=== PATIENT | male | born 1950 | race Asian ===

== ENCOUNTER 2018-04-26 11:20 | Inpatient (IN) | payer MEDICARE ==
[~2018-04-26] VITALS: Ht 167.6 cm; Wt 64.4 kg
--- NOTE | 2018-04-26 11:40 | NUR ---
FROM HOME, C/O ABD PAIN X 4 DAYS, +N/V AND LAST BM 4 DAYS AGO. NAD, VSS, WILL MONITOR
[2018-04-26] MEDS ORDERED: ONDANSETRON HCL/PF 4 MG/2 ML VIAL ONE (11:41)
[2018-04-26 11:47] LABS: BASOPHILS % (AUTO) 1.1 % (0.0-2.0); EOSINOPHILS % (AUTO) 5.9 % (0.0-6.0); HEMATOCRIT 49 % (39-51); HEMOGLOBIN 16.8 g/dL (13.5-17.5); LYMPHOCYTES # (AUTO) 1.1 /CMM (0.8-4.8); LYMPHOCYTES % (AUTO) 31.7 % (20.0-44.0); MEAN CORPUSCULAR HGB CONC 34 g/dl (31.0-36.0); MEAN CORPUSCULAR VOLUME 96 fL (80-96); MONOCYTES # (AUTO) 0.3 /CMM (0.1-1.30); MONOCYTES % (AUTO) 10.1 % (2.0-12.0); NEUTROPHILS # (AUTO) 1.7 /CMM (1.8-8.9); NEUTROPHILS % (AUTO) 51.2 % (43.0-81.0); PLATELET COUNT (AUTO) 173 /CMM (150-450); RED BLOOD CELL COUNT(AUTO) 5.16 MIL/uL (4.5-6.0); WHITE BLOOD COUNT (AUTO) 3.3 K/uL (4.3-11.0)
[2018-04-26 11:54] LABS: CALCIUM, SERUM 8.8 mg/dL (8.5-10.1); CARBON DIOXIDE 31 mmol/L (21-32); CHLORIDE 105 mmol/L (98-107); CREATININE 1.2 mg/dL (0.6-1.3); GLUCOSE 112 mg/dL (74-106); POTASSIUM 4.5 mmol/L (3.5-5.1); SODIUM SERUM 141 mmol/L (136-145); UREA NITROGEN, BLOOD 21 mg/dL (7-18)
[2018-04-26 12:00] LABS: ALANINE AMINOTRANSFERASE 23 U/L (12-78); ALBUMIN 4.1 g/dL (3.4-5.0); ALKALINE PHOSPHATASE 97 U/L (46-116); ASPARTATE AMINOTRANSFERASE 17 U/L (15-37); BILIRUBIN,DIRECT 0.3 mg/dL (0.0-0.2); BILIRUBIN,TOTAL 1.1 mg/dL (0.2-1.0); LIPASE 312 U/L (73-393)
[2018-04-26] MEDS ORDERED: IV NS 0.9% 1,000 ML BAG IV ONE (12:00)
[2018-04-26] MEDS ORDERED: ONDANSETRON HCL/PF 4 MG/2 ML VIAL IVP ONE (12:00)
[2018-04-26 12:37] LABS: APPEARANCE,URINE Clear (CLEAR); BILIRUBIN,URINE Negative (NEGATIVE); BLOOD, URINE Small Ery/uL (NEGATIVE); COLOR,URINE Yellow (YELLOW); KETONES,URINE Negative (NEGATIVE); LEUKOCYTE ESTERASE ,URINE Negative (NEGATIVE); NITRITE, URINE Negative (NEGATIVE); PROTEIN,URINE Negative (NEGATIVE); UGLUCOSE Negative (NEGATIVE); UROBILINOGEN,URINE 0.2 EU/dL (0.2)
[2018-04-26 12:44] LABS: BACTERIA,URINE None seen /HPF (None Seen); SQUAMOUS EPITHELIAL CELL,UR Few /HPF (None Seen)
[2018-04-26] MEDS ORDERED: IOHEXOL-300 100 ML VIAL IV ONE (13:04)
[2018-04-26] MEDS ORDERED: IV NS 0.9% 250 ML IV ONE (13:04)
[2018-04-26] MEDS ORDERED: CT SWABBABLE VALVE TRANS SET 1 EA INFUS.SET MC ONE (13:04)
--- NOTE | 2018-04-26 14:06 | NUR ---
CALLED [facility] REQUESTED MEDSUR BED FOR THIS PATIENT.
--- NOTE | 2018-04-26 14:29 | NUR ---
ADMIT TO MED SURG 320-1 MARCUS VALDERRAMA DX VOMITING ACCEPTING SHANI MANNING
[2018-04-26] MEDS ORDERED: ACETAMINOPHEN 325 MG TABLET PO PRN (15:30)
[2018-04-26] MEDS ORDERED: ONDANSETRON HCL/PF 4 MG/2 ML VIAL IVP PRN (15:30)
[2018-04-26] MEDS ORDERED: HYDROCODONE/APAP 5/325MG 1 EACH TABLET PO PRN (15:30)
[2018-04-26] MEDS ORDERED: ZOLPIDEM TARTRATE 5 MG TABLET PO PRN (15:30)
[2018-04-26] MEDS ORDERED: MAGNESIUM HYDROXIDE 30 ML UDC PO PRN (15:30)
[2018-04-26] MEDS ORDERED: LOPERAMIDE HCL (2 MG CAP) 2 MG CAPSULE PO PRN (15:30)
[2018-04-26] MEDS ORDERED: HYDROMORPHONE INJ 2 MG/ML DISP.SYRIN IV PRN (15:30)
[2018-04-26] MEDS ORDERED: MAG HYDROX/AL HYDROX/SIMETH 30 ML UDC PO PRN (15:30)
[2018-04-26] MEDS ORDERED: Z GUARD REMEDY 2 OZ OINT TP PRN (15:30)
--- NOTE | 2018-04-26 15:41 | NUR ---
CALLED [facility] AND SPOKE TO MARCUS, REPORT GIVEN FOR DEMETRICE.
--- NOTE | 2018-04-26 16:15 | NUR ---
MS BUILDING CLEANING SUPERVISOR NOTE RECEIVED PT VIA WHEELCHAIR ACCOMPANIED BY 1 ER STAFF. PT TRANSFERRED FROM WHEELCHAIR, USING CANE, PIVOTED TO BED WITH 1 STAFF ASSISTANCE. PT IS ALERT AND RESPONSIVE. UNABLE TO TELL FULL ORIENTATION PT IS GREEK SPEAKING. ABLE TO ANSWER SIMPLE YES/NO QUESTIONS. RESPIRATIONS ARE EVEN AND UNLABORED, NOT IN ANY ACUTE DISTRESS NOTED. NO FACIAL GRIMACING OR MOANING NOTED. ABDOMEN IS SOFT AND NONDISTENDED, BOWEL SOUNDS ARE HYPOACTIVE UPON AUSCULTATION. NO FACIAL GRIMACING NOTED UPON PALPATION OF BLADDER. PT IS INCONTINENT. REDNESS NOTED TO SACRUM AND RIGHT HEEL, OLD INCISION SCAR TO RIGHT HIP. PICTURES TAKEN AND PLACED IN CHART. BELONGINGS LIST DONE AND ACCOUNTED FOR. BLAISE, PROCESSING TECHNOLOGIST AWARE OF ADMISSION WITH ORDERS NOTED AND CARRIED OUT. INSTRUCTED PT USING HAND GESTURES ON HOW TO USE CALL LIGHT WHEN ASSISTANCE IS NEEDED, PT ABLE TO PERFORM RETURN DEMONSTRATION. CALL LIGHT IS LEFT WITHIN REACH. WILL MONITOR THROUGHOUT SHIFT FOR CONTINUITY OF CARE.
[2018-04-26 16:25] VITALS: BP 112/72
--- NOTE | 2018-04-26 16:25 | NUR ---
PATIENT TRANSFERRED TO ROOM 320, REPORT GIVEN TO MARCUS VALDERRAMA. NAD.
[2018-04-26 16:30] VITALS: BP 112/72
[2018-04-26] MEDS: IV NS 0.9% 1,000 ML IV PRN (17:24)
--- NOTE | 2018-04-26 18:54 | NUR ---
MS RN CLOSING NOTES ALL DUE MEDS GIVEN, NEEDS MET AND ANTICIPATED. PT IS ALERT AND RESPONSIVE, AFEBRILE. RESPIRATIONS ARE EVEN AND UNLABORED, NOT IN ANY ACUTE DISTRESS NOTED. NO FACIAL GRIMACING OR MOANING NOTED. IV TO LFA INTACT, NO INFILTRATION NOTED. DRESSING KEPT CLEAN AND DRY. IV FLUIDS RUNNING AT 75ML/HR AND TOLERATING WELL. SAFETY MEASURES ARE IN PLACE. REMINDED PT TO USE CALL LIGHT WHEN ASSISTANCE IS NEEDED, CALL LIGHT IS LEFT WITHIN REACH. WILL ENDORSE TO NEXT SHIFT FOR CONTINUITY OF CARE.
--- NOTE | 2018-04-26 19:22 | NUR ---
MS RN NOTES-- PT SEEN AND EXAMINED BY DR. DARLIN Love/ ORDERS FOR REGULAR DIET.
--- NOTE | 2018-04-26 19:30 | NUR ---
RN NOTES NOTICED PT. HAS SLURRED SPEECH, HELP PT TO EAT, PUDDING WAS GIVEN
--- NOTE | 2018-04-26 19:30 | NUR ---
RN NOTES RECEIVED PT. AWAKE ON BED, A/OX3, KINYARWANDA SPEAKING, NO PAIN NOTED, NO SOB, CALL LIGHT WITHIN REACH, SIDERAILSUPX2, CONTINUE TO MONITOR
[2018-04-26 20:00] VITALS: BP_SYST 11; BP_SYST 110; BP_SYST 132; BP_DIAS 79; BP_DIAS 84
[2018-04-27 06:39] LABS: ALBUMIN 3.4 g/dL (3.4-5.0); BASOPHILS % (AUTO) 0.9 % (0.0-2.0); BILIRUBIN,TOTAL 1.3 mg/dL (0.2-1.0); CALCIUM, SERUM 8.5 mg/dL (8.5-10.1); CREATININE 1.1 mg/dL (0.6-1.3); EOSINOPHILS % (AUTO) 6.1 % (0.0-6.0); HEMATOCRIT 48 % (39-51); HEMOGLOBIN 16.3 g/dL (13.5-17.5); LYMPHOCYTES # (AUTO) 1.5 /CMM (0.8-4.8); LYMPHOCYTES % (AUTO) 34.8 % (20.0-44.0); MAGNESIUM 2.3 mg/dL (1.8-2.4); MEAN CORPUSCULAR HGB CONC 34 g/dl (31.0-36.0); MEAN CORPUSCULAR VOLUME 95 fL (80-96); MONOCYTES # (AUTO) 0.3 /CMM (0.1-1.30); MONOCYTES % (AUTO) 7.7 % (2.0-12.0); NEUTROPHILS # (AUTO) 2.1 /CMM (1.8-8.9); NEUTROPHILS % (AUTO) 50.5 % (43.0-81.0); PHOSPHORUS 2.6 mg/dL (2.5-4.9); PLATELET COUNT (AUTO) 165 /CMM (150-450); POTASSIUM 4.2 mmol/L (3.5-5.1); RED BLOOD CELL COUNT(AUTO) 5.06 MIL/uL (4.5-6.0); TOTAL PROTEIN, SERUM 6.8 g/dL (6.4-8.2); WHITE BLOOD COUNT (AUTO) 4.2 K/uL (4.3-11.0)
--- NOTE | 2018-04-27 06:47 | NUR ---
RN NOTES AWAKE, MORNING CARE RENDERED, NO PAIN NOTED, CALL LIGHT WITHIN REACH, SIDERAILSUPX2, PT. NEEDS ATTENDED
[2018-04-27 08:00] VITALS: BP 103/65
--- NOTE | 2018-04-27 08:00 | NUR ---
MS RN AM NOTE RECEIVED PT LYING IN BED.USES WHEELCHAIR, USING CANE, PIVOTED TO BED WITH 1 STAFF ASSISTANCE. PT IS ALERT AND RESPONSIVE. UNABLE TO RESPOND WELL WITH ROMANIAN QUESTIONS EVEN WITH ROMANIAN RN MANAGER NICU.UNABLE TO ANSWER EVEN SIMPLE YES/NO QUESTIONS. MAKES HAND GESTURES BUT MUMBLES AND RESPONDS WITH INCOHERENT ROMANIAN ANSWERS.MAKES HAND GESTURES AND NARENDRA 6 HUMAN FIGURES IN THE PAPER AND NUMBER 12 BUT UNABLE TO EXPLAIN IF THEY ARE FAMILY MEMBERS OR FRIENDS-JUST RESPONDS WITH HAND GESTURES THAT CAN'T BE UNDERSTOOD.RESPIRATIONS ARE EVEN AND UNLABORED, NOT IN ANY ACUTE DISTRESS NOTED. NO FACIAL GRIMACING OR MOANING NOTED. ABDOMEN IS SOFT AND NONDISTENDED, BOWEL SOUNDS ARE HYPOACTIVE UPON AUSCULTATION. ATE 100%BREAKFAST.NO FACIAL GRIMACING NOTED UPON PALPATION OF BLADDER. PT IS INCONTINENT. REDNESS NOTED TO SACRUM AND RIGHT HEEL-APPLIED Z GUARD TO SACRAL AREA AND AFLOAT EDITH HEELS WITH PILLOWS, OLD INCISION SCAR TO RIGHT HIP. BLAISE, CALENDER ROLL PRESS OPERATOR AWARE.INSTRUCTED PT USING HAND GESTURES ON HOW TO USE CALL LIGHT WHEN ASSISTANCE IS NEEDED, PT ABLE TO PERFORM RETURN DEMONSTRATION. CALL LIGHT IS LEFT WITHIN REACH. WILL MONITOR THROUGHOUT SHIFT FOR CONTINUITY OF CARE.
[2018-04-27] MEDS: PANTOPRAZOLE 40 MG TABLET.DR PO SCH (08:25)
[2018-04-27] MEDS: IV NS 0.9% 1,000 ML IV PRN (09:06)
--- NOTE | 2018-04-27 10:00 | NUR ---
COMMERCIAL TELLER,HUBERT AND HEARING IMPAIRED ITINERANT TEACHER,SWAPNA AT BEDSIDE WHO SPOKE TO THE PT WITH A OCCITAN RN SUPPORT SPECIALIST BUT PT STILL MAKES INCOMPREHENSIBLE HAND GESTURES AND MUMBLES INCOMPREHENSIBLE WORDS.SWAPNA WILL TRY TO CONTACT MISSING PERSONS PHONE LINE.
--- NOTE | 2018-04-27 10:43 | NUR ---
SPOKE TO THE PT WITH A GEORGIAN RN OFFICE MESSENGER HELPER AND PT STILL DOESN'T MAKE SENSE IN ANSWERING THE QUESTIONS.PT HAS MUMBLED SPEECH,NARENDRA 6 MEN IN THE PAPER AND MAKES HAND SIGNALS POINTING IN THE AIR.KERRI HASKINS AND OUTBOUND SALES ADVISOR,SWAPNA BOSS.
--- NOTE | 2018-04-27 12:12 | NUR ---
CYNDEE, manager of case management Bertha Renteria and JANNIE Tamayo met with pt. bedside to get information. Rn spoke with the pt. with a Danish assistant financial accountant but pt. is not able to provide any comprehensible information and displays hand gestures pointing in the air. According to JANNIE Tamayo, pt. austyn pictures of six men and kept pointing at the ceiling. Pt. was unable to provide any information. CYNDEE contacted missing persons at and spoke to Detective Leyva who stated pt. is not showing up as a missing person and no information is found on the pt. in their database.
--- NOTE | 2018-04-27 15:34 | NUR ---
PT'S DAUGHTER,CONY CALLED TO CHECK HER DAD.CONY IS IN [place] AT THIS TIME.CONY STATED THAT PT LIVES IN [place], [place]. WHEREIN,TRICIA ( IS THE POST HOLE DIGGING MACHINE OPERATOR OF [facility].PT'S OTHER DAUGHTER IS EFE VILLATORO WHO LIVES IN [place] .MADAN BARCENAS,OPHTHALMIC TECHNOLOGIST OF THE INFORMATION.
--- NOTE | 2018-04-27 15:35 | NUR ---
PT'S DTR,CONY STATED THAT HER DAD HAD STROKE 1O YRS AGO AND THAT'S WHEN HIS DAD HAD RT SIDED HEMIPLEGIA,HAVE MUMBLED SPEECH (DYSARTHRIA),EARLY DEMENTIA AND GALLSTONES REMOVED.
--- NOTE | 2018-04-27 15:36 | NUR ---
CYNDEE received a call from pt's RN Belkis informing SW that she received a phone call from pt's daughter Eloise (lives in [place]) informing her that pt. resides at a board and care facility named [facility]. Eloise informed JANNIE Tamayo that she received a call from Jesi No, optometrist/practice owner of the board and care informing her that pt. was at [facility]. Jesi's phone number is . Pt's other daughter is Lilian Hannah who resides in [place] and her contact is . CYNDEE called Jesi to confirm if pt. resides at her facility. Jesi confirmed that pt. does reside at her board and care and she will accept him back once medically cleared. CYNDEE inquired with Jesi as to why pt. was dropped out in the ER and the attendant who brought him didn't give pt's detail information such as address, emergency contact and identification. Jesi informed SW pt. was on hospice but no longer and is receiving home health services. According to Jesi, home health agency dropped pt. in the ED. CYNDEE asked Jesi for the name and contact information to the home health. Jesi did not have the information on her but informed CYNDEE she will find out the name and contact [facility]. Addendum: 04/27/18 at 1547 by SWAPNA COTTER Correction: Board and care is called [facility] in [place].
[2018-04-27 16:00] VITALS: BP 109/67
--- NOTE | 2018-04-27 19:30 | NUR ---
RN NOTES RECEIVED PT. AWAKE ON BED, A/OX2-3, DIVEHI SPEAKING MUMBLED SPEECH, NO PAIN NOTED, NO SOB, CALL LIGHT WITHIN REACH, SDIERAILSUPX2, CONTINUE TO MONITOR
[2018-04-27 20:49] VITALS: BP 102/68
[2018-04-28] MEDS: IV NS 0.9% 1,000 ML IV PRN (00:15)
--- NOTE | 2018-04-28 06:33 | NUR ---
RN NOTES AWAKE, NO PAIN NOTED, NO SOB, MORNING CARE RENDERED, CALL LIGHT WITHIN REACH, SIDERAILSUPX2, PT. NEEDS ATTENDED
--- NOTE | 2018-04-28 07:30 | NUR ---
RN OPENING NOTES PT WAS RECEIVED IN BED AT LOWEST AND LOCKED POSITION WITH SIDE RAILS UP X2, A/O X2 ROMANSH SPEAKING ONLY, BREATHING EVEN AND UNLABORED ON RA, NO S/S OF PAIN OR DISTRESS CURRENTLY NOTED, IV IS PATENT AND INTACT, SAFETY PRECAUTIONS IN PLACE, CALL LIGHT WITHIN REACH, WILL MONITOR ACCORDINGLY
[2018-04-28] MEDS: PANTOPRAZOLE 40 MG TABLET.DR PO SCH (07:37)
[2018-04-28 08:00] VITALS: BP 100/74
--- NOTE | 2018-04-28 10:34 | NUR ---
RN NOTES PT HAS REFUSED LAB DRAW TWICE THIS MORNING
--- NOTE | 2018-04-28 16:35 | NUR ---
DISCHARGE NOTE PT WAS D/C IN MEDICALLY STABLE CONDITION AT THIS TIME BACK TO [facility] WITH EMT CREW. IV AND ID BAND WERE REMOVED. D/C PAPERWORK AND BELONGING LIST WERE DISCUSSED AND SIGNED. EXITCARE WAS ALSO DISCUSSED. ALL BELONGINGS WERE HANDED TO THE EMT AND PATIENT. SKIN WOUNDS WERE PHOTOGRAPHED AND DOCUMENTED. ALL NEEDS WERE ATTENDED TO DURING HIS STAY. ETA 15-30 MIN.
== END 2018-04-28 16:35 | disposition home or self-care (01) | DRG 392 ==
LOC: ER 11:21 → MED 15:01 → EDBD 15:01
PROVIDERS: ADMIT Nurse Practitioner Acute Care; ATTEND Nurse Practitioner Acute Care
DX: A08.4 Viral intestinal infection, unspecified (principal); I69.351 Hemiplegia and hemiparesis following cerebral infarction affecting right dominant side; E86.0 Dehydration; Z90.49 Acquired absence of other specified parts of digestive tract; E80.6 Other disorders of bilirubin metabolism; F01.50 Vascular dementia, unspecified severity, without behavioral disturbance, psychotic disturbance, mood disturbance, and anxiety; R73.9 Hyperglycemia, unspecified
CPT/HCPCS: 36415; 76705-TC; 80048-TC; 80053-TC; 80061-TC; 80076-TC; 81000-TC; 83690-TC; 83735-TC; 84100-TC; 84484-TC; 85025-TC; 87081-TC; 87086-TC; 97110-TC; 97530-TC; G0378; J2405; J7030; J7050; Q9967